=== PATIENT | male | born 1955 | race Caucasian/White ===

== ENCOUNTER 2022-08-21 16:16 | Emergency (ER) | payer MEDICARE, BC, SELFPAY ==
[2022-08-21 16:27] VITALS: BP 112/73; PULSE 65; RESP 18; TEMP 36.7; O2SAT 97; BMI 29.8
--- NOTE | 2022-08-21 16:47 | CRLHL7_ITS ---
For Patients: As a result of the Century Cures Act, medical imaging exams and procedure reports are released immediately into your electronic medical record. You may view this report before your referring provider. If you have questions, please contact your health care provider. INDICATION: Abdominal pain. TECHNIQUE: CT abdomen and pelvis acquired with intravenous contrast, 100 mL of Isovue 370. Coronal and sagittal reformats. COMPARISON: None available. FINDINGS: Right basilar calcified granulomas. Normal liver contour. No suspicious hepatic lesion. Portal veins patent. No biliary dilatation. The gallbladder, pancreas, spleen, and adrenals are unremarkable. Symmetric renal enhancement. No hydronephrosis bilaterally, though the ureters appear diffusely thickened with mild periureteral stranding. The bladder is decompressed but appears diffusely thickened with mucosal hyperenhancement. Unremarkable prostate. The bowel appears normal in caliber and enhancement diffusely. Postsurgical changes of lower abdominal hernia repair. Trace free fluid in the low pelvis. No pneumoperitoneum, focal collection, or lymphadenopathy. Normal caliber abdominal aorta with mild atherosclerotic changes. Lower lumbar spondylosis. IMPRESSION: 1. Urinary bladder is decompressed but appears diffusely thickened with mucosal hyperenhancement, suspicious for cystitis. Correlate with urinalysis. 2. Diffuse ureteral inflammatory changes bilaterally, raising the possibility of ascending urinary infection. No hydronephrosis or definitive CT evidence of pyelonephritis bilaterally. Dictated by Al Marx MD @ 08/21/2022 6:38:38 PM Please note that all CT scans at this facility use dose modulation, iterative reconstruction, and/or weight-based dosing when appropriate to reduce radiation dose to as low as reasonably achievable. Dictated by: Al Marx MD @ 08/21/2022 18:38:48 (Electronically Signed)
[2022-08-21] MEDS: KETOROLAC 30 MG/ML inj IVP (17:05)
[2022-08-21 17:09] LABS: Appearance Urine Cloudy (Clear); Bilirubin Urine Negative (Negative); Blood Urine 2+ (Negative); Color Urine Yellow (Yellow); Glucose Urine Negative (Negative); Ketones Urine 1+ (Negative); Leukocyte Esterase Urine Trace (Negative); Nitrite Urine Positive (Negative); Protein Urine 3+ (Negative); Specific Gravity Urine 1.025 (1.000-1.030); pH Urine 5.5 (5.0-8.5)
[2022-08-21 17:13] LABS: Basophils Absolute Auto 0.03 K/uL (0.00-0.30); Basophils Percent Auto 0.4 % (0.0-3.0); Eosinophils Absolute Auto 0.04 K/uL (0.00-0.50); Eosinophils Percent Auto 0.5 % (0.0-7.0); Hematocrit 39.4 % (37.0-53.0); Hemoglobin* 13.7 gm/dL (13.5-17.5); Immature Granulocytes Abs Auto 0.01 K/uL (0.00-0.30); Immature Granulocytes Pct Auto 0.1 %; Lymphocytes Percent Auto 9.1 % (20-44); Mean Corpuscular HGB Conc 35 gm/dL (32-36); Mean Corpuscular Hemoglobin 35 pg (26-34); Mean Corpuscular Volume 100 fL (80-100); Monocytes Percent Auto 9.1 % (0.0-11.0); Neutrophils Percent Auto 80.8 % (42.0-72.0); Platelet Count* 219 K/uL (140-440); RDW Coefficient of Variation % 11.8 % (11.5-15.5); Red Blood Count 3.96 m/uL (4.30-5.90); White Blood Count* 7.69 K/uL (4.50-11.00)
[2022-08-21 17:17] LABS: Slide Review Reflex No
[2022-08-21 17:38] LABS: Albumin* 4.2 g/dL (3.3-5.0); Chloride* 102 mmol/L (96-114); Sodium* 134 mmol/L (135-149)
[2022-08-21 17:39] LABS: Potassium* 4.3 mmol/L (3.6-5.1)
[2022-08-21 17:41] LABS: Creatinine* 1.3 mg/dL (0.5-1.5); Est. Creatinine Clearance* 62.18; Estimated Glomerular Filt Rate 61 ml/min
[2022-08-21 17:42] LABS: Alanine Aminotransferase* 25 U/L (4-50); Alkaline Phosphatase* 70 U/L (40-150); Aspartate Amino Transferase* 33 U/L (12-35); Bilirubin Direct* 0.2 mg/dL (0.0-0.5); Bilirubin Total* 1.1 mg/dL (0.1-1.5); Blood Urea Nitrogen* 30 mg/dL (7-30); Calcium* 9.5 mg/dL (8.4-10.6); Carbon Dioxide* 22 mmol/L (20-32); Glucose* 97 mg/dL (60-115); Total Protein* 7.9 g/dL (6.0-8.3)
[2022-08-21 17:46] LABS: Bacteria Urine Moderate; Squamous Epithelial Cell Urine Few (None-Few)
--- NOTE | 2022-08-21 18:10 | ED_ITS ---
HPI - Abdominal Pain General Chief Complaint: Abdominal Pain Stated Complaint: Lower back, Lower stomach pain Time Seen by Provider: 08/21/22 16:35 History of Present Illness HPI narrative: This 67-year-old male comes in reporting lower abdominal pain over the past 2 or 3 days. He states that he did not sleep well last night because of the pain. He reports that the pain is constant. He denies having any fevers, dysuria, altered bowel function, nausea, or vomiting. He states that he began to have some pain in his eyes then in his neck and shoulders. These symptoms went away and then eliud began in his abdomen and radiating through to his low back. Related Data Previous Rx's Medication Instructions Recorded cephalexin 500 mg capsule 500 mg PO TID 10 days #30 caps 08/21/22 hydrocodone 5 mg-acetaminophen 325 1 tab PO Q4-6H PRN pain #10 tabs 08/21/22 mg tablet Allergies Allergy/AdvReac Type Severity Reaction Status Date / Time No Known Drug Allergies Allergy Verified 08/21/22 18:09 Review of Systems Status of ROS Reports: 10 or more systems reviewed and unremarkable except as noted in History and below Narrative Constitutional: No fevers, no weight gain or loss. Eyes: No discharge. No vision changes. HENT: No congestion, no sore throat, no ear pain. Cardiovascular: No chest pain, no palpitations. Respiratory: No shortness of breath, no wheezes, no cough. Gastrointestinal: No vomiting, no diarrhea. Lower abdominal pain as described above. Genitourinary: No dysuria, no hematuria. Musculoskeletal: Normal range of motion. Skin: No rashes, no pruritis. Neurological: No dizziness, weakness, sensory change, speech change. Endo/Heme/Allergies: No bruising or bleeding. No polydipsia. Pysch: no suicidality, no anxiety, no insomnia. All other systems reviewed and are negative. PFSH PFSH Social History Smoking Status: Never smoker Do you use any of these nicotine containing products: None Second hand tobacco smoke exposure: No How often do you have a drink containing alcohol: never AUDIT-C Alcohol total score: 0 Non-prescribed substance use: denies use Exam Narrative: Exam Narrative: Constitutional: Well-developed, well-nourished, no acute distress. HEENT: Normocephalic, atraumatic. Neck: Normal range of motion. Nontender. Supple. Heart: Regular. No murmurs. Normal rate. Intact distal pulses. Lungs: Clear to auscultation. No chest discomfort. No wheezes, rhonchi, or rales. Abdomen: Normal bowel sounds. Tenderness in the low abdomen just above the pubic bone. No rebound tenderness. Genitalia: Deferred. Back: No midline tenderness. Normal range of motion. Extremities: Normal range of motion. No injury. Skin: Intact. No rash. Warm. No erythema or pallor. Neurologic: No altered sensation. No weakness. Alert and oriented. Psychiatric: No suicidality. No anxiety or depression. No insomnia. Nursing notes and vitals signs are reviewed. Const: Vital Signs, click to edit/add: Vital Signs - 24 hr 08/21/22 16:27 Temperature 98.0 F Pulse Rate [Pulse Oximeter] 65 Respiratory Rate 18 Blood Pressure [Le ft Upper Arm] 112/73 Pulse Oximetry 97 Oxygen Delivery Me thod Room Air Course Vital Signs Vital signs: Initial Vital Signs Temperature 98.0 F 08/21/22 16:27 Temperature Source Temporal Artery Scan 08/21/22 16:27 Pulse Rate 65 08/21/22 16:27 Pulse Rhythm 08/21/22 16:27 Pulse Strength 3+ Normal 08/21/22 16:27 Respiratory Rate 18 08/21/22 16:27 Blood Pressure 112/73 08/21/22 16:27 Blood Pressure Mean 86 08/21/22 16:27 Blood Pressure Position Sitting 08/21/22 16:27 Pulse Oximetry 97 08/21/22 16:27 Oxygen Delivery Method 08/21/22 16:27 Vital Signs Temperature 98.0 F 08/21/22 16:27 Pulse Rate 65 08/21/22 16:27 Respiratory Rate 18 08/21/22 16:27 Blood Pressure 112/73 08/21/22 16:27 Pulse Oximetry 97 08/21/22 16:27 Oxygen Delivery Method 08/21/22 16:27 Temperature 98.0 F 08/21/22 16:27 Pulse Rate 65 08/21/22 16:27 Respiratory Rate 18 08/21/22 16:27 Blood Pressure 112/73 08/21/22 16:27 Pulse Oximetry 97 08/21/22 16:27 Oxygen Delivery Method 08/21/22 16:27 MDM - Abdominal Pain MDM Narrative Medical decision making narrative: This patient comes in with significant lower abdominal pain that radiates through to his low back. He arrives with normal vital signs. He is normally healthy and yet states that he did not sleep well last night because of the discomfort. An IV was established and labs were drawn. CT scan of the abdomen and pelvis does show evidence of acute cystitis. Urinalysis confirms this with elevated white blood cell count in the urine and positive nitrites. The patient received an IV dose of Rocephin 1 g and prescription for Keflex. He also received a few tablets of [place] for pain relief. He is okay to be discharged home. Lab Data Labs: Lab Results 08/21/22 08/21/22 08/21/22 Range/Units 17:04 17:04 17:04 WBC 7.69 (4.50-11.00) K/uL RBC 3.96 L (4.30-5.90) m/uL Hgb 13.7 (13.5-17.5) gm/dL Hct 39.4 (37.0-53.0) % MCV 100 (80-100) fL MCH 35 H (26-34) pg MCHC 35 (32-36) gm/dL RDW Coeff of Ramirez 11.8 (11.5-15.5) % Plt Count 219 (140-440) K/uL Neut % (Auto) 80.8 H (42.0-72.0) % Lymph % (Auto) 9.1 L (20-44) % Mcdonough % (Auto) 9.1 (0.0-11.0) % Eos % (Auto) 0.5 (0.0-7.0) % Baso % (Auto) 0.4 (0.0-3.0) % Neut # (Auto) 6.20 (1.7-7.0) K/uL Lymph # (Auto) 0.70 L (0.90-2.90) K/uL Mcdonough # (Auto) 0.70 (0.00-0.90) K/UL Eos # (Auto) 0.04 (0.00-0.50) K/uL Baso # (Auto) 0.03 (0.00-0.30) K/uL ESR 70 H (2-15) mm/hr Sodium 134 L (135-149) mmol/L Potassium 4.3 (3.6-5.1) mmol/L Chloride 102 (96-114) mmol/L Carbon Dioxide 22 (20-32) mmol/L BUN 30 (7-30) mg/dL Creatinine 1.3 (0.5-1.5) mg/dL Estimated Creat Clear 62.18 Estimated GFR 61 ml/min Glucose 97 (60-115) mg/dL Calcium 9.5 (8.4-10.6) mg/dL Total Bilirubin 1.1 (0.1-1.5) mg/dL Direct Bilirubin 0.2 (0.0-0.5) mg/dL AST 33 (12-35) U/L ALT 25 (4-50) U/L Alkaline Phosphatase 70 (40-150) U/L C-Reactive Protein 9.0 H (0.5-1.0) mg/dL Total Protein 7.9 (6.0-8.3) g/dL Albumin 4.2 (3.3-5.0) g/dL Urine Color (Yellow) Urine Appearance (Clear) Urine pH (5.0-8.5) Ur Specific [place] (1.000-1.030) Urine Protein (Negative) Urine Glucose (UA) (Negative) Urine Ketones (Negative) Urine Blood (Negative) Urine Nitrite (Negative) Urine Bilirubin (Negative) Urine Urobilinogen (0.2-1.0) Ur Leukocyte Esterase (Negative) Urine RBC (0-2) Urine WBC (0-5) Ur Squamous Epith Cells (None-Few) Urine Bacteria (None) 08/21/22 Range/Units Unknown WBC (4.50-11.00) K/uL RBC (4.30-5.90) m/uL Hgb (13.5-17.5) gm/dL Hct (37.0-53.0) % MCV (80-100) fL MCH (26-34) pg MCHC (32-36) gm/dL RDW Coeff of Ramirez (11.5-15.5) % Plt Count (140-440) K/uL Neut % (Auto) (42.0-72.0) % Lymph % (Auto) (20-44) % Mcdonough % (Auto) (0.0-11.0) % Eos % (Auto) (0.0-7.0) % Baso % (Auto) (0.0-3.0) % Neut # (Auto) (1.7-7.0) K/uL Lymph # (Auto) (0.90-2.90) K/uL [place] # (Auto) (0.00-0.90) K/UL Eos # (Auto) (0.00-0.50) K/uL Baso # (Auto) (0.00-0.30) K/uL ESR (2-15) mm/hr Sodium (135-149) mmol/L Potassium (3.6-5.1) mmol/L Chloride (96-114) mmol/L Carbon Dioxide (20-32) mmol/L BUN (7-30) mg/dL Creatinine (0.5-1.5) mg/dL Estimated Creat Clear Estimated GFR ml/min Glucose (60-115) mg/dL Calcium (8.4-10.6) mg/dL Total Bilirubin (0.1-1.5) mg/dL Direct Bilirubin (0.0-0.5) mg/dL AST (12-35) U/L ALT (4-50) U/L Alkaline Phosphatase (40-150) U/L C-Reactive Protein (0.5-1.0) mg/dL Total Protein (6.0-8.3) g/dL Albumin (3.3-5.0) g/dL Urine Color Yellow (Yellow) Urine Appearance Cloudy A (Clear) Urine pH 5.5 (5.0-8.5) Ur Specific [place] 1.025 (1.000-1.030) Urine Protein 3+ A (Negative) Urine Glucose (UA) Negative (Negative) Urine Ketones 1+ A (Negative) Urine Blood 2+ A (Negative) Urine Nitrite Positive A (Negative) Urine Bilirubin Negative (Negative) Urine Urobilinogen 1.0 (0.2-1.0) Ur Leukocyte Esterase Trace A (Negative) Urine RBC 10-25 A (0-2) Urine WBC 10-25 A (0-5) Ur Squamous Epith Cells Few (None-Few) Urine Bacteria Moderate A (None) Imaging Data CT scan - abdomen: Radiologist's impression: 1. Urinary bladder is decompressed but appears diffusely thickened with mucosal hyperenhancement, suspicious for cystitis. Correlate with urinalysis. 2. Diffuse ureteral inflammatory changes bilaterally, raising the possibility of ascending urinary infection. No hydronephrosis or definitive CT evidence of pyelonephritis bilaterally. Discharge Plan Discharge Clinical Impression: Urinary tract infection Patient Disposition: Home, Self-Care Condition: Stable Additional Instructions: Take medication as prescribed. Follow up with MD or return if worsening symptoms happen. Prescriptions: New cephalexin 500 mg capsule 500 mg PO TID 10 Days Qty: 30 0RF hydrocodone-acetaminophen 5-325 mg tablet 1 tab PO Q4-6H PRN (Reason: pain) Qty: 10 0RF Follow Up/Referrals: Anne Marie Willoughby DO [Primary Care Provider] - Stand Alone Forms: [employer] Info Instructions
[2022-08-21 18:39] LABS: Erythrocyte SedimentationRate* 70 mm/hr (2-15)
[2022-08-21] MEDS: cefTRIAXone 1 GM in 0.9 % SODIUM CHLORIDE Mini-bag 100 ML IVPB (18:52)
== END 2022-08-21 19:34 | disposition home or self-care (01) ==
PROVIDERS: Emergency Provider Emergency Medicine Emergency Medical Services; PCP Family Medicine
DX: N39.0 Urinary tract infection, site not specified (principal)
CPT/HCPCS: 36415; 74177; 80048; 80076; 81001; 85025; 85651; 86140; 87086; 87186; 96365; 96372; 99284; 99285; J0696; J1885; Q9967

== ENCOUNTER 2023-08-31 12:36 | Outpatient (CLI) | payer MEDICARE, BC, SELFPAY ==
--- NOTE | 2023-08-31 13:19 | W.ANESCHARGE ---
Anesthesia Charges Start Date/Time Anesthesia Start Date: 08/31/23 Anesthesia Start Time: 13:25 Stop Date/Time Anesthesia Stop Date: 08/31/23 Anesthesia Stop Time: 13:45
--- NOTE | 2023-08-31 13:48 | W.ANESCHARGE ---
Anesthesia Charges Start Date/Time Anesthesia Start Date: 08/31/23 Anesthesia Start Time: 13:25 Stop Date/Time Anesthesia Stop Date: 08/31/23 Anesthesia Stop Time: 13:45
== END 2023-08-31 12:37 | disposition home or self-care (01) ==
LOC: OP CLINIC 12:38
PROVIDERS: PCP Family Medicine; Visit Provider Internal Medicine Gastroenterology
DX: K22.70 Barrett's esophagus without dysplasia (principal)
CPT/HCPCS: 00731; 43239; 88305; J2704

== ENCOUNTER 2024-04-06 17:20 | Emergency (ER) | payer MEDICARE, BC, SELFPAY ==
[2024-04-06 17:30] VITALS: BP 138/90; PULSE 98; RESP 18; TEMP 37; O2SAT 97; BMI 29.8
--- NOTE | 2024-04-06 17:41 | ED_ITS ---
HPI - General Adult General Chief complaint: Extremity Pain/Injury, Lower Stated complaint: right leg swelling Time Seen by Provider: 04/06/24 17:28 History of Present Illness HPI narrative: right lower leg swelling x one month. denies injury 69-year-old man presenting to the emergency department with concern of right lower leg swelling for last month. Apparently no injury. Denies trauma. Not really pain but just a tightness. No chest pain or shortness of breath. Just got back from hunting most in [place]; son got a moves but he did not. He is pleased by this result. There was no injury here either. He has continued to be very active and ambulate on his leg since this development. No history of heart failure. Though much later in conversation does reveal about a month ago was just ambulating and felt a sudden tightening in his lower right calf. He actually has been limping a little since this time Related Data Home Medications ?Medication ?Instructions ?Recorded ?Confirmed levothyroxine 175 mcg tablet 175 mcg PO QAM 04/06/24 04/06/24 lisinopril 5 mg tablet 5 mg PO DAILY 04/06/24 04/06/24 metoprolol succinate 100 mg 100 mg PO DAILY 04/06/24 04/06/24 tablet,extended release 24 hr pantoprazole 40 mg tablet,delayed 40 mg PO DAILY 04/06/24 04/06/24 release probenecid 500 mg tablet 500 mg PO BID 04/06/24 04/06/24 rivaroxaban 20 mg tablet (Xarelto) 20 mg PO DAILY 04/06/24 04/06/24 tamsulosin 0.4 mg capsule 0.4 mg PO DAILY 04/06/24 04/06/24 tolterodine 4 mg capsule,extended 4 mg PO DAILY 04/06/24 04/06/24 release 24 hr Previous Rx's ?Medication ?Instructions ?Recorded cephalexin 500 mg capsule 500 mg PO TID 10 days #30 caps 08/21/22 hydrocodone 5 mg-acetaminophen 325 1 tab PO Q4-6H PRN pain #10 tabs 08/21/22 mg tablet Allergies Allergy/AdvReac Type Severity Reaction Status Date / Time No Known Drug Allergies Allergy Verified 08/21/22 18:09 Review of Systems Status of ROS: Reports: 6 or more systems reviewed and unremarkable except as noted in History and below PFSH PFSH Social History Smoking Status: Never smoker Do you use any of these nicotine containing products: None Second hand tobacco smoke exposure: No How often do you have a drink containing alcohol: never AUDIT-C Alcohol total score: 0 Non-prescribed substance use: denies use Exam Narrative: Exam Narrative: Very pleasant. He bearded. Breathing easily. Lungs appear to be clear. Heart in mildly elevated rate. Right lower leg in question shows moderate pitting edema from the knee down essentially. No pain. No defect in the Achilles appreciated. He has good strength to plantar flexion dorsiflexion. No abnormality really in the knee. Equal and strong femoral pulses. No swellings here. Const: Vital Signs, click to edit/add: Vital Signs - 24 hr 04/06/24 17:30 Temperature 98.6 F Pulse Rate [Right Pulse Oximeter] 98 Respiratory Rate 18 Blood Pressure [Ri ght Upper Arm] 138/90 H Pulse Oximetry 97 Oxygen Delivery Me thod Room Air Documenting provider has reviewed patient's vital signs: yes Course Vital Signs Vital signs: Initial Vital Signs Temperature 98.6 F 04/06/24 17:30 Temperature Source Temporal Artery Scan 04/06/24 17:30 Pulse Rate 98 04/06/24 17:30 Respiratory Rate 18 04/06/24 17:30 Blood Pressure 138/90 H 04/06/24 17:30 Blood Pressure Mean 106 H 04/06/24 17:30 Blood Pressure Position Sitting 04/06/24 17:30 Pulse Oximetry 97 04/06/24 17:30 Oxygen Delivery Method Room Air 04/06/24 17:30 Vital Signs Temperature 98.6 F 04/06/24 17:30 Pulse Rate 98 04/06/24 17:30 Respiratory Rate 18 04/06/24 17:30 Blood Pressure 138/90 H 04/06/24 17:30 Pulse Oximetry 97 04/06/24 17:30 Oxygen Delivery Method Room Air 04/06/24 17:30 Temperature 98.6 F 04/06/24 20:01 Pulse Rate 85 04/06/24 20:01 Respiratory Rate 18 04/06/24 20:01 Blood Pressure 125/78 04/06/24 20:01 Pulse Oximetry 97 04/06/24 20:01 Oxygen Delivery Method Room Air 04/06/24 20:01 Medical Decision Making MDM Narrative Medical decision making narrative: Without evidence of injury or rather known injury I would assess for DVT. Does not have any evidence of cellulitis or other injury on the surface. Unusual to be having this degree of edema isolated on 1 lower extremity. Certainly could be venous insufficiency I suppose. Will check 1st for DVT per concern. Reviewed scan with market development analyst noting this to be negative. No evidence of [place] cyst either. Radiology over-read as below TECHNIQUE: Static and compression grayscale and spectral (including color) Doppler ultrasound of the right lower extremity. FINDINGS: Deep veins: The right common femoral, deep femoral, superficial femoral, popliteal, posterior tibial, and contralateral left common femoral veins are patent and free of clot. The peroneal veins are not seen. Superficial veins: The imaged right great saphenous vein is patent and free of clot. Extravascular findings: No significant incidental findings. IMPRESSION: No evidence of DVT in the right lower extremity. The peroneal veins are not seen. Again asymmetry seems unusual. Pressors some sort of occult malignancy over bony processes contributing to the edema. Would also assess labs particularly renal function though I think this will be fine. X-rays of the right tib fib reviewed by me look to be WNL. Chronic changes as noted per Radiology below. Technique: Right tibia and fibula 2 views. Comparison: None. Findings: Bones: Alignment is normal. No fractures or suspicious bone lesions. Joint spaces: Knee joint chondrocalcinosis. Soft tissues: Diffuse soft tissue swelling. Vascular calcifications. Impression: No acute fracture or dislocation. Diffuse soft tissue swelling. Reviewed again history and finally revealed this episode of tightening as noted in 2nd part of HPI. I do think this might explain his symptoms. A calf strain or tear to some degree in somebody who already is rather pain tolerant and then continued heavy activity. Labs are reassuring. See patient discharge plan for further discussion Medical Records Medical records reviewed: Yes I reviewed the patient's medical records Lab Data Lab results reviewed: Yes I reviewed the patient's lab results Labs: Lab Results 04/06/24 04/06/24 Range/Units 19:07 19:11 Sodium 138 (135-149) mmol/L Potassium 4.2 (3.6-5.1) mmol/L Chloride 105 (96-114) mmol/L Carbon Dioxide 23 (20-32) mmol/L Anion Gap 10 (7-15) mEq/L BUN 34 H (7-30) mg/dL Creatinine 1.2 (0.5-1.5) mg/dL Estimated Creat Clear 65.56 Estimated GFR 66 ml/min Glucose 84 (60-115) mg/dL Calcium 9.4 (8.4-10.6) mg/dL Total Creatine Kinase 145 (54-186) U/L Urine Color Yellow (Yellow) Urine Appearance Clear (Clear) Urine pH 6.0 (5.0-8.5) Ur Specific [place] 1.025 (1.000-1.030) Urine Protein Negative (Negative) Urine Glucose (UA) Negative (Negative) Urine Ketones Negative (Negative) Urine Blood Negative (Negative) Urine Nitrite Negative (Negative) Urine Bilirubin Negative (Negative) Urine Urobilinogen 0.2 (0.2-1.0) Ur Leukocyte Esterase Negative (Negative) Urine RBC 0-2 (0-2) Urine WBC 0-2 (0-5) Ur Squamous Epith Cells None (None-Few) Urine Bacteria None (None) Discharge Plan Discharge Clinical Impression: Leg edema, right, Strain of calf muscle Patient Disposition: Home, Self-Care Condition: Stable Additional Instructions: I am still in having a hard time understanding that what sounds like a strain of your calf muscle a month ago is still contributing to swelling at this point though I suppose it is possible. Have not been able to identify anything else. Less likely to be a clot as you are anticoagulated. We have not identified anything else unusual in the knee to contribute to this either. See handout on exercises for calf strain. I would wrap your leg as discussed with [place] wraps provided or perhaps get a long compression sock to put on to your leg at rest. I suppose the sock would be nice when you are up and about. Elevate your leg at rest otherwise. Recent labs from your clinic seem to show some mild inefficiency in your kidney. I will call you if there is anything else to discuss in your lab work today. (all your labs today ended up looking quite good; resulted just now ) Otherwise if swelling and discomfort is persisting in other 2 weeks, in spite of treatment/exercises, I would follow-up with Orthopedics and/or your primary care provider. You might need further imaging of this leg on follow-up for a more certain diagnosis. Prescriptions: No Action cephalexin 500 mg capsule 500 mg PO TID 10 Days Qty: 30 0RF hydrocodone-acetaminophen 5-325 mg tablet 1 tab PO Q4-6H PRN (Reason: pain) Qty: 10 0RF levothyroxine 175 mcg tablet 175 mcg PO QAM tolterodine 4 mg capsule,extended release 24hr 4 mg PO DAILY metoprolol succinate 100 mg tablet extended release 24 hr 100 mg PO DAILY tamsulosin 0.4 mg capsule 0.4 mg PO DAILY pantoprazole 40 mg tablet,delayed release (DR/EC) 40 mg PO DAILY lisinopril 5 mg tablet 5 mg PO DAILY probenecid 500 mg tablet 500 mg PO BID Xarelto 20 mg tablet 20 mg PO DAILY Follow Up/Referrals: Anne Marie Willoughby DO [Primary Care Provider] - Stand Alone Forms: [facility] Info Instructions
--- NOTE | 2024-04-06 17:46 | CRLHL7_ITS ---
For Patients: As a result of the Century Cures Act, medical imaging exams and procedure reports are released immediately into your electronic medical record. You may view this report before your referring provider. If you have questions, please contact your health care provider. INDICATION: Right leg swelling, not otherwise specified. COMPARISON: None available. TECHNIQUE: Static and compression grayscale and spectral (including color) Doppler ultrasound of the right lower extremity. FINDINGS: Deep veins: The right common femoral, deep femoral, superficial femoral, popliteal, posterior tibial, and contralateral left common femoral veins are patent and free of clot. The peroneal veins are not seen. Superficial veins: The imaged right great saphenous vein is patent and free of clot. Extravascular findings: No significant incidental findings. IMPRESSION: No evidence of DVT in the right lower extremity. The peroneal veins are not seen. Dictated by Samm Felton MD @ 04/06/2024 6:57:24 PM (Electronically Signed)
--- OUTSIDE RECORDS SUMMARY | 2024-04-06 18:36 | XMS_ITS | Clinical Summary ---
Author Organization [facility] Address [place], [place] [address] Care Team Providers Care Group President Name Role Phone Anne Marie Willoughby DO Primary Care Provider Jayy Bird DPM Unavailable Allergies No known active allergies Medications Medication Sig Dispensed Refills Start Date End Date Status Abvdadog-Xlfhwei-Rlz n-Lutein tab Take 1 tablet by mouth 2 times daily. 0 06/09/2014 Active [place] [id number] rol 500 mg-500 mcg -1 mg-12.5 mg cap Take 3 tablets by mouth once daily. 0 06/09/2014 Active polyethylene glycol-electrolyte (GOLYTELY) 236-22.74-6.74 -5.86 gram suspensionIndication s:Encounter for screening colonoscopy Drink 3 quarts the day before procedure and drink 1 quart 6 hours before procedure 4000 mL 05/22/2021 Active tolterodine (DETROL LA) 4 mg Extended-Release capsuleIndications:U rinary urgency Take 1 Capsule (4 mg) by mouth once daily. 90 Capsule 3 10/08/2021 Active erythromycin ophthalmic ointment 0.5%Indications:Infe cted eye lid Apply 1 Strip to right eye 6 times daily. 3.5 g 01/08/2022 Active triamcinolone 0.5% (ARISTOCORT) 0.5 % creamIndications:Acu te eczema Apply topically to affected area(s) two times daily. 30 g 1 04/13/2023 Active metoprolol succinate (TOPROL XL) 100 mg Sustained-Release tabletIndications:Pe rsistent atrial fibrillation (HC) Take 1 Tablet (100 mg) by mouth once daily. 90 Tablet 3 06/18/2023 Active cephalexin (KEFLEX) 500 mg capsule Take 1 Capsule by mouth three times daily. Active HYDROcodone-acetamin ophen (5-325 mg/tablet) Take 1 Tablet by mouth every 4 hours if needed for Pain. Active levothyroxine (SYNTHROID) 175 mcg tabletIndications:Hy pothyroidism (acquired) Take 1 Tablet (175 mcg) by mouth before breakfast. 90 Tablet 3 02/08/2024 Active lisinopriL (PRINIVIL; ZESTRIL) 5 mg tabletIndications:Pe rsistent atrial fibrillation (HC) Take 1 Tablet (5 mg) by mouth once daily. 90 Tablet 4 02/08/2024 Active pantoprazole (PROTONIX) 40 mg delayed-release tabletIndications:Ba rrett's esophagus without dysplasia Take 1 Tablet (40 mg) by mouth once daily. 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 180 Tablet 3 02/08/2024 Active rivaroxaban (Xarelto) 20 mg tabletIndications:Pe rsistent atrial fibrillation (HC) TAKE ONE TABLET BY MOUTH EVERY DAY 90 Tablet 3 02/08/2024 Active sildenafil citrate (VIAGRA) 100 mg tabletIndications:Er ectile dysfunction due to diseases classified elsewhere Take 0.5-1 Tablets (50-100 mg) by mouth once daily if needed for Erectile Dysfunction. Take 30min to 4 hours before sexual activity. Max 100mg/24hr.MAX 1 TABLET PER 24 HOURS. 10 Tablet 2 02/08/2024 Active tamsulosin (FLOMAX) 0.4 mg capsuleIndications:U rinary frequency TAKE ONE CAPSULE BY MOUTH EVERY DAY 90 Capsule 3 02/08/2024 Active Active Problems Problem Noted Date Diagnosed Date Ringing in ear, left 08/07/2023 Gouty arthritis of hand 12/16/2021 Persistent atrial fibrillation 08/18/2020 Assessment & Plan (07/27/2022 3:39 PM [employer]): chart update only. Left hydrocele 11/17/2018 Osteoarthritis of both hands 07/18/2018 Hypothyroidism (acquired) 01/14/2018 Sialadenitis 01/14/2018 Espino's esophagus without dysplasia 06/24/2016 Overview (09/02/2023): EGD 06/2016 Espino's, repeat EGD in 1 year EGD 07/2017 Espino's, repeat EGD in 3 years EGD 08/2020 Espino's, repeat EGD in 3 years with propofol EGD 08/2023 Espino's, repeat EGD in 3 years, propofol Adenomatous colon polyp 06/24/2016 Overview (06/19/2021): Colonoscopy 06/2016 polyp repeat in 5 years Colonoscopy 06/2021 TA, repeat in 5 years, propofol Macular degeneration, dry 06/09/2014 Overview (06/11/2014): Dr. Muniz HTN (hypertension) 10/10/2013 Shoulder impingement syndrome 09/14/2013 buttermaker continuous churn (current) use of anticoagulants 2011 Left atrial thrombus Resolved Problems Problem Noted Date Diagnosed Date Resolved Date Gout 01/30/2015 04/14/2023 Adjustment disorder with mix ed anxiety and depressed mood 07/14/2014 03/31/2019 A-fib 02/23/2012 03/12/2012 Sports hernia, bilateral 07/29/2010 Elevated BP 09/13/2008 03/31/2019 Mallet finger 09/13/2008 03/31/2019 Chronic Systolic/Diastolic C ongestive Heart Failure, NYHA Class II 09/23/2022 Atrial fibrillation 04/07/20 Overview (10/10/2013): -newly found 2011 - presented with tachycardia-mediated CMP/CHF symptoms -KIMBER 03/11/2012 large ROLF thrombus present -KIMBER 05/19/2012, 09/02/2012, and 01/19/2013 KIMBER with residual thrombus (although improving) -05/30/2013 KIMBER guided DCCV scheduled. -06/07/2013 CTA for pulmonary vein anatomy and evaluation of left atrial appendage. Previously seen structure in question appears to be most consistent with pectinate muscle based on orphologic appearance and Hounsfield unit density. -06/22/2013: s/p acutely successful direct current cardioversion -10/10/2013 admission for dofetilide therapy Non-ischemic Dilated Cardiomyopathy 09/23/2022 Overview (05/30/2013): -newly diagnosed 03/2012 - LVEF significantly reduced *coronary angiogram without significant stenosis *tachycardia mediated with new afib RVR -Echo 01/19/2013 LVEF 40% Encounters Date Type Department Care Team Description 04/06/2024 Telephone [facility] [address] [place] [address] Anne Marie Willoughby DO Results 04/06/2024 Nurse Triage [address] [address] Anne Marie Willoughby DO Leg Swelling 03/15/2024 Nurse Triage [facility] [address] [place] [address] Anne Marie Willoughby DO Leg Pain/problem 02/08/2024 3:55 PM CDT Office Visit [facility] [address] [place] [address] Anne Marie Willoughby DO Medicare ANNUAL (subsequent) Visit (68 yr); Foot Problem (right foot-corn) 02/08/2024 Travel 01/26/2024 Orders Only [facility] [address] [place] [phone] Calixto Hernandez MD <No scans attached> 01/12/2024 Refill [facility] [address] [place] [address] Anne Marie iWlloughby DO Refill Request (Tamsulosin) from Last 3 Months Immunizations Name Administration Dates Next Due COVID-19 vaccine (Tapingo NTetechies.in 30mcg/0.3mL) SUZE MASON 07/15/2021,11/22/2020,10/03/2020 Influenza, IIV4 07/15/2021,,03/30/2019,2017,07/17/2017,04/30/2016,03/15/2014 Influenza, Inactivated AIIV4 (Age 65+ Years) Preserv Free 04/13/2023,06/16/2022 Pneumococcal Conj 20-valent (Prevnar 20) 06/16/2022 Pneumococcal Poly,23-Valent (Pneumovax) 03/12/2012 Tdap 02/23/2012 Zoster (Shingrix-RZV, recombinant) 03/29/2018, Family History Medical History Relation Name Comments No Known Problems Brother 1 No Known Problems Brother 2 No Known Problems Brother 3 No Known Problems Brother 4 Cancer-prostate Father Psychiatric illness Father Stroke Maternal Grandfather Coronary artery disease Mother Heart Disease Mother bypass Hypertension Mother Heart attack Paternal Grandfather No Known Problems Sister 1 No Known Problems Sister 2 No Known Problems Sister 3 Relation Name Status Comments Brother 1 Alive Brother 2 Alive Brother 3 Alive Brother 4 Alive Father Alive Maternal Grandfather Maternal Grandmother Mother (Age 81) Paternal Grandfather Paternal Grandmother Sister 1 Alive Sister 2 Alive Sister 3 Alive Social History Tobacco Use Types Packs/Day Years Used Date Smoking Tobacco: Never Smokeless Tobacco: Former Chew Quit: 05/20/2014 Tobacco Cessation:Counseling Given: Yes Comments:37 years of chew Alcohol Use Standard Drinks/Week Comments Yes 12 (1 standard drink = 0.6 oz pure alcohol) about 12-24 beers per week, couple per night maybe PHQ-2 Answer Date Recorded PHQ-2 TOTAL SCORE 1 02/08/2024 Social Connections Answer Date Recorded Frequency of Communication with Friends and Fami ly Not on file 06/27/2021 Financial Resource Strain Answer Date R ecorded Difficulty of Paying Living Expenses Not on file 06/27/2021 Difficulty of Paying Living Expenses Not on file 06/27/2021 Sex and Gender Information Value Date Recorded Sex Assigned at Not on file Gender Identity Not on file Sexual Orientation Not on file Obstetrics History Last Filed Vital Signs Vital Sign Reading Time Taken Comments Blood Pressure 114/76 02/08/2024 4:08 PM CDT Pulse 84 02/08/2024 4:08 PM CDT Temperature 37.1 ??C (98.7 ??F) 06/12/2021 4:15 PM CS T Respiratory Rate 16 2021 3:04 PM CDT Oxygen Saturation 99% 02/08/2024 4:08 PM CDT Inhaled Oxygen Concentration - - Weight 105.2 kg (232 lb) 02/08/2024 4:08 PM CDT Height 182.2 cm (5' 11.75) 02/08/2024 4:08 PM C DT Body Mass Index 31.68 02/08/2024 4:08 PM CDT Plan of Treatment Upcoming Encounters Date Type Department Care Team (Late st Contact Info) Description 06/23/2024 11:00 AM [employer] Orders Only [facility] [address] [facility] [address] [facility] [address] [place] [address] 06/23/2024 1:00 PM [employer] Office Visit [facility] [address] [place] [address] Albina May PA [address] [place], [place] [id number] Health Maintenance Due Date Last Done Comments Tetanus booster 02/22/2022 02/23/2012 COVID-19 vaccine series ( season) 2024 07/15/2021, 11/22/2020, 10/03/2020 Influenza for age 65+ 03/06/2024 04/13/2023 , 06/16/2022, 07/15/2021, Additional history exists BMI (ht and wt on same day) for age 18+ 02/07/2025 02/08/2024, 06/18/2023, 06/16/2022, Additional history exists Depression screening for age 12+ 02/07/2025 02/08/2024, 06/16/2022, 06/16/2022, Additional history exists Medicare Wellness for age 65+ 02/08/2025 02/08/2024, 06/16/2022 Colonoscopy through age 75 06/17/202606/17, 06/17/2021, 06/23/2016, Additional history exists Lipids for age 45-75 02/07/2029 02/08/2024, 05/13/2023, 06/16/2022, Additional history exists Tdap Completed 02/23/2012 Hepatitis C screening for ag e 18-79 Completed 12/30/2013 Zoster (shingles) series for age 50+ Completed 03/29/2018, 10/13/2017 Pneumococcal series for age 65+ Completed 2, 03/12/2012 Procedures Procedure Name Priority Date/Time Associated Diagnosis Comments TSH Routine 02/08/2024 5:03 PM CDT Hypothyroidism (acquired) PSA TOTAL (DIAGNOSTIC) Routine 02/08/2024 5:03 PM CDT Elevated prostate specific antigen (PSA) BASIC METABOLIC PANEL Routine 02/08/2024 5:03 PM CDT HTN (hypertension) LIPID PANEL W REFLEX MEASURED LDL Routine 02/08/2024 5:03 PM CDT Lipid screening COLONOSCOPY SCREENING Routine 06/17/2021 8:06 AM [employer] History of colon polyps ANTI HCV Routine 12/30/2013 3:22 PM CDT Need for hepatitis C screening test from Last 3 Months or Most Recently Relevant to Health Maintenance Results * (ABNORMAL) LIPID PANEL W REFLEX MEASURED LDL (02/08/2024 5:03 PM CDT) CHOLESTEROL,TOTAL 201(H) 100 - 199 mg/dL 02/09/2024 3:15 PM CDT [facility] [employer] Comment: Cholesterol, Total Reference Ranges Desirable <200 mg/dL Borderline 200-239 mg/dL High >=240 mg/dL TRIGLYCERIDES 110 <150 mg/dL 02/09/2024 3:15 PM CDT [facility] [employer] LAB[facility] HDL CHOLESTEROL 53 >40 mg/dL 4 3:15 PM CDT [facility] [employer] NON-HDL CHOLESTEROL 148(H) <145 mg/dl 02/09/2024 3:15 PM CDT [facility] [employer] CHOL/HDL RATIO 3.79 <4.50 02/09/2024 3:15 PM CDT [facility] [employer] LDL CHOLESTEROL 126 <=130 mg/dL 02/09/2024 3:15 PM CDT [facility] VLDL CHOLESTEROL 22 <=30 mg/dL 02/09/2024 3:15 PM CDT [facility] PROVIDER ORDERED STATUS RANDOM 02/09/2024 3:15 PM CDT [facility] Blood BLOOD SPECIMEN / Unknown Venipuncture / Unknown 02/08/2024 5:03 PM CDT 02/08/2024 5:03 PM CDT Anne Marie Natarajan Case DO CHEMISTRY Performing Organization Address City/[facility]/ZIP Co de Phone Number [facility] [address] [place] [address], * TSH (02/08/2024 5:03 PM CDT) TSH 0.79 0.27 - 4.20 uIU/mL 02/09/2024 3:15 PM CDT [facility] Blood BLOOD SPECIMEN / Unknown Venipuncture / Unknown 02/08/2024 5:03 PM CDT 02/08/2024 5:03 PM CDT Narrative [facility] - 02/09/2024 3:15 PM CDT In Adults, TSH values between 5.00 and 10.00 uIU/ml do not necessarily indicate the presence of Hypothyroidism. Correlation with clinical findings such as presence of goiter and/or Thyroperoxidase (TPO) Antibody may be helpful. For more information please refer to OMAYRA 2004; 291: 228-238. Anne Marie Willoughby DO CHEMISTRY [facility] [address] [place] [address], * PSA TOTAL (DIAGNOSTIC) (02/08/2024 5:03 PM CDT) PSA TOTAL (DIAGNOSTIC) 1.72 <4.00 ng/mL 02/09/2024 3:15 PM CDT [facility] Blood BLOOD SPECIMEN / Unknown Venipuncture / Unknown 02/08/2024 5:03 PM CDT 02/08/2024 5:03 PM CDT Narrative [facility] - 02/09/2024 3:15 PM CDT The test method changed on 12/30/2022. If this test has been used for serial monitoring, rebaselining is recommended. Rebaselining consists of 2 measurements, collected 3-6 weeks apart. The [employer] total PSA assay is an electrochemiluminescence immunoassay ECLIA performed on the [employer] Chris e immunoassay analyzers. Values obtained with different assay methods may be different and cannot be used interchangeably. Anne Marie Willoughby DO CHEMISTRY [facility] [address] [place] [address], * (ABNORMAL) BASIC METABOLIC PANEL (02/08/2024 5:03 PM CDT) SODIUM 140 136 - 145 mmol/L 02/09/2024 3:15 PM CDT [facility] POTASSIUM 5.1 3.5 - 5.1 mmol/L 02/09/2024 3:15 PM CDT [facility] CHLORIDE 104 98 - 107 mmol/L 02/09/2024 3:15 PM CDT [facility] CO2,TOTAL 24 22 - 29 mmol/L 02/09/2024 3:15 PM CDT [facility] ANION GAP 12 5 - 18 02/09/2024 3:15 PM CDT [facility] GLUCOSE 93 70 - 99 mg/dL 02/09/2024 3:15 PM CDT [facility] CALCIUM 9.6 8.8 - 10.2 mg/dL 02/09/2024 3:15 PM CDT [facility] BUN 15 8 - 23 mg/dL 02/09/2024 3:15 PM CDT [facility] CREATININE 1.31(H) 0.70 - 1.20 mg/dL 02/09/2024 3:15 PM CDT [facility] BUN/CREAT RATIO 11 10 - 20 4 3:15 PM CDT [facility] eGFR 60(L) >90 mL/min/1.7 3m2 02/09/2024 3:15 PM CDT [facility] Comment:As of 2021, eG FR is calculated by the CKD-EPI creatinine equation without race adjustment. ??eGFR can be influenced by muscle mass, exercise, and diet. ??The reported eGFR is an estimation only and is only applicable if the renal function is stable. Blood BLOOD SPECIMEN / Unknown Venipuncture / Unknown 02/08/2024 5:03 PM CDT 02/08/2024 5:03 PM CDT Anne Marie Willoughby DO CHEMISTRY Performing Organization Address [facility] Co de Phone Number [facility] [address] [place] [address], * COLONOSCOPY SCREENING (06/23/2016 12:00 AM [employer]) Naldo Asencio MD GI PROCEDURE ORD * ANTI HCV [69951.2] (12/30/2013 3:22 PM CDT) HEPATITIS C ANTIBODY Non-Reacti ve Non-Reacti ve 12/30/2013 8:47 PM CDT [facility] Blood specimen (specimen) BLOOD SPECIMEN / Unknown Venipuncture / Unknown 12/30/2013 3:22 PM CDT 12/30/2013 3:22 PM CDT Narrative [facility] - 12/30/2013 8:47 PM CDT Antibodies to HCV not detected; does not exclude the possibility of exposure to HCV. Anne Marie Willoughby DO SEND OUTS Performing Organization Address City/[facility]/ZIP Co de Phone Number [facility] [address] [place] [address], from Last 3 Months or Most Recently Relevant to Health Maintenance Advance Directives Documents on File Type Date Recorded Patient Application Development Director Expl anation Healthcare Directive 04/25/2016 7:23 AM 1 * Full Code (Latest Code Status on File) Date Activated Date Inactivated Comments 10/10/2013 12:23 PM 10/13/2013 3:12 PM * Full Code Date Activated Date Inactivated Comments 06/22/2013 8:13 AM 06/22/2013 3:02 PM * Full Code Date Activated Date Inactivated Comments 05/30/2013 10:57 AM 05/30/2013 4:03 PM * Full Code Date Activated Date Inactivated Comments 01/19/2013 10:23 AM 01/19/2013 6:23 PM * Full Code Date Activated Date Inactivated Comments 03/10/2012 3:35 PM 03/12/2012 6:30 PM Care Teams Group President Relationship Specialty Start Date End Date Anne Marie Willoughby DO [address] [address] PCP - General Family Practice 07/17/10 Jayy Bird DPM [address] [place] [address] PODIATRY Podiatry 06/09/12
--- OUTSIDE RECORDS SUMMARY | 2024-04-06 18:36 | XMS_ITS | Clinical Summary ---
Author Organization [facility] Address [address] [address] Care Team Providers Care Housekeeper And Laundry Assistant Name Role Phone Pcp, Pt Mary MCCORMICK Primary Care Provider [phone] Source Comments You are receiving this document as you are listed as the primary care provider,follow-up provider, or the patient has been referred to you for consultation.This is in compliance with the Medicare and[employer] EHR Incentive Program,which states Providers who transition their patient to another setting of careor provider of care or refers their patient to another provider of care shouldprovide summary care record for each transition of care or referral. [place] Allergies No known active allergies Medications Medication Sig Dispensed Refills Start Date End Date Status lisinopril (AKA ZESTRIL) 10 MG tablet Take 5 mg by mouth Daily. 06/18/2015 Active rivaroxaban (AKA XARELTO) 10 MG tablet Take 20 mg by mouth Daily. 06/18/2015 Active diltiaZEM ER beads (TIAZAC) 240 MG 24 hour release capsule Take 240 mg by mouth daily. Active esomeprazole (NEXIUM) 40 MG capsule Take 40 mg by mouth daily. Active eszopiclone (LUNESTA) 1 MG tablet Take by mouth daily at bedtime. Active predniSONE (DELTASONE) 20 MG tabletIndications:G out flare ups Take 20 mg by mouth as needed. Indications: Gout flare ups Active sildenafil (VIAGRA) 100 MG tablet Take 100 mg by mouth daily. Active ciclopirox olamine (LOPROX) 0.77 % cream Apply topically two times a day. Active acetaminophen (TYLENOL) 500 MG tablet Take 1 Tab by mouth every 4 hours as needed for Pain (Mild Pain). Maximum acetaminophen dose is 4000 mg in 24 hours 100 Tab 11 01/08/2018 Active ibuprofen (MOTRIN) 200 MG tablet Take 2 Tabs by mouth every 6 hours as needed for Pain (Mild Pain). This may be safely mixed with the prescription pain medications (oxycodone, hydrocodone or tramadol.)?? This may also be safely mixed with acetaminophen. 100 Tab 01/08/2018 Active traMADol (ULTRAM) 50 MG tablet Take 1 Tab by mouth every 4 hours as needed for Pain (Severe Pain). This medication may be safely taken with ibuprofen or naproxen 6 Tab 01/08/2018 Active Additional Information Patient not taking.Reported on 01/18/2018 colchicine (COLCRYS) 0.6 MG tablet Take 1 Tab by mouth two times a day. 14 Tab 01/18/2018 Active Active Problems No known active problems Social History Tobacco Use Types Packs/Day Years Used Date Smoking Tobacco: Never Smokeless Tobacco: Never Alcohol Use Standard Drinks/Week Comments Yes 12 (1 standard drink = 0.6 oz pu re alcohol) Sex and Gender Information Value Date Recorded Sex Assigned at Not on file Gender Identity Not on file Sexual Orientation Not on file Last Filed Vital Signs Vital Sign Reading Time Taken Comments Blood Pressure 140/89 01/08/2018 1:04 PM CDT Pulse 85 01/08/2018 1:04 PM CDT Temperature 36.3 ??C (97.4 ??F) 01/08/2018 1:04 PM CD T Respiratory Rate 16 01/08/2018 1:04 PM CDT Oxygen Saturation 98% 01/08/2018 1:04 PM CDT Inhaled Oxygen Concentration - - Weight 94.8 kg (209 lb) 01/08/2018 10:45 AM CDT Height 182.9 cm (6' 0.01) 01/08/2018 10:45 AM C DT Body Mass Index 28.34 01/08/2018 10:45 AM CDT Plan of Treatment Health Maintenance Due Date Last Done Comments Colon Cancer Screening Plan Due 1955 Hep C Screening (Preventive Services) 1955 PSA Screening Discussion 1955 Adult Preventive Visit 1975 Cholesterol 1992 DTaP/Tdap/Td (2 - Tdap) 02/22/2022 02/23/2012 Pneumococcal 65+ Yrs (2 - PCV) 2022 03/12/2012 COVID-19 Vaccine (3 - season) 2024 11/22/2020, 10/03/2020 Influenza (#1) 2024 04/06/2020, 03/07, 04/05/2018, Additional history exists RSV (1 - 1-dose 75+ series) 2032 Zoster/Shingles Completed 03/29/2018, 10/13/2017 HepA Aged Out No longer eligi ble based on patient's age to complete this topic HepB Aged Out No longer eligi ble based on patient's age to complete this topic Hib Aged Out No longer eligi ble based on patient's age to complete this topic IPV (Polio) Aged Out No longer eligi ble based on patient's age to complete this topic MCV4 Aged Out No longer eligi ble based on patient's age to complete this topic Care Teams Housekeeper And Laundry Assistant Relationship Specialty Start Date End Date Pcp, Pt MD [place] [address] PCP - General 06/18/15
--- OUTSIDE RECORDS SUMMARY | 2024-04-06 18:36 | XMS_ITS | Data Portability ---
Author Organization [facility], [facility] Address [address] [place] [address] Assessment No assessment recorded. Plan of Treatment Reminders Order Date Submit Date Provider Last Modified By Organization Details Last Modified Time Details Appointments None recorded. Lab PSA, total, serum or plasma 2022 023 [email or web address] 30 [facility], [address], [place], [address], 3 09:08:47 PSA, serum or plasma 2022 023 [facility], [address], [place], [address], 3 16:46:46 PSA, serum or plasma 2023 024 [facility], [address], [place], [address], 4 15:50:39 PSA, total, serum or plasma 2023 024 [email or web address], [address] , [place], [address], 4 16:35:47 Referral None recorded. Procedures None recorded. Surgeries None recorded. Imaging None recorded. Medication Orders tamsulosin 0.4 mg capsule 2022 023 [facility], [place], operated by [facility], [place], [place], [address] [facility], [place], [address], 3 17:06:18 tolterodine ER 4 mg capsule,ext ended release 24 hr 2022 023 [facility], [place], [address] [facility], [place], [address], 3 17:06:19 Patient TargetsNo targets recorded. Patient InstructionsNo instructions recorded. Reason for Referral None Reported. Results Created Date Observation Date Name Description Value Unit Range Abnormal Flag Note LastModifiedBy Organization Detail LastModifiedTime 08/18/19 23 08/18/2022 PSA, serum or plasm a PSA 10.6 ng/mL 0-4.0 Not Available [facility] [address], [place], [address], 08/18/2022 16:46:33 09/02/19 24 09/02/2023 PSA, serum or plasm a PSA 1.5 ng/mL 0-4.0 Not Available [facility] [address], [place], [address], 09/02/2023 15:50:20 08/19/19 23 08/18/2022 bladd er scan (PROC ) No observ ation record ed. BARCODE Not Available 2022 09:44:28 Result Notes None recorded. Procedures Surgical History Date Name Laterality Status Provider Name and Address Organization Details Recorded Time 4 YAM CURER/blood draw completed Tony Anderson MD [address] [place] [address],[address], [address], [facility] 09/02/2023 15:50:15 4 Bladder Scan completed Tony Anderson MD [address] [place] [address],[address], [address], [facility] 09/02/2023 15:50:10 3 YAM CURER/blood draw completed Tony Anderson MD [address] [place] [address],[address], [address], [facility] 08/18/2022 16:46:28 02/13/202 3 Bladder Scan completed Tony Anderson MD [address] [facility],[address], [place], [address], [facility] 08/18/2022 16:46:22 Appendectomy completed Tony Anderson MD [address] [facility],[address], [place], [address], [facility] 08/18/2022 16:45:36 Imaging Results Imaging Date Name Status LastModified by Organiz ation Details LastModified Time 08/18/2022 bladder scan (PROC) completed BARCODE Information not available 08/19/2022 09:44:28 Procedure Notes None recorded. Medical Equipment None Reported. Allergies No known drug allergies Medications Name Sig Start Date Stop Date Status Note LastModified by Organization Details LastModified Time amoxicillin 500 mg capsule TAKE ONE CAPSULE BY MOUTH THREE TIMES A DAY UNTIL GONE 08/18 completed Not Available Not Available Not Available levothyroxi ne 175 mcg tablet TAKE ONE TABLET BY MOUTH EVERY DAY BEFORE BREAKFAST active Not Available Not Available No t Available levothyroxi ne 137 mcg tablet TAKE ONE TABLET BY MOUTH EVERY DAY BEFORE BREAKFAST 09/02 completed Not Available Not Available Not Available triamcinolo ne acetonide 0.5 % topical cream APPLY TO AFFECTED AREA(S) TWO TIMES A DAY active Not Available Not Available No t Available metoprolol succinate ER 50 mg tablet,exte nded release 24 hr TAKE ONE AND ONE-HALF TABLETS BY MOUTH EVERY DAY 09/02 completed Not Available Not Available Not Available tolterodine ER 4 mg capsule,ext ended release 24 hr TAKE ONE CAPSULE BY MOUTH EVERY DAY active Not Available Not Available No t Available hydrocodone 5 mg-acetamin ophen 325 mg tablet TAKE ONE TABLET BY MOUTH EVERY 4 TO 6 HOURS NEEDED FOR PAIN 09/02 completed Not Available Not Available Not Available metoprolol succinate ER 100 mg tablet,exte nded release 24 hr TAKE ONE TABLET BY MOUTH EVERY DAY active Not Available Not Available No t Available sildenafil 100 mg tablet TAKE 0.5-1 TABLETS BY MOUTH ONCE DAILY IF NEEDED FOR ERECTILE DYSFUNCTI ON TAKE 30MIN TO 4 HOURS BEFORE SEXUAL ACTIVITY MAX 100MG/24 HOURS active Not Available Not Available No t Available tamsulosin 0.4 mg capsule TAKE ONE CAPSULE BY MOUTH EVERY DAY active Not Available Not Available No t Available cephalexin 500 mg capsule TAKE ONE CAPSULE BY MOUTH THREE TIMES A DAY FOR 10 DAYS 09/02 completed Not Available Not Available Not Available pantoprazol e 40 mg tablet,heron yed release TAKE ONE TABLET BY MOUTH EVERY DAY active Not Available Not Available No t Available erythromyci n 5 mg/gram (0.5 %) eye ointment APPLY ONE STRIP TO RIGHT EYE SIX TIMES DAILY 08/18 completed Not Available Not Available Not Available levothyroxi ne 125 mcg tablet TAKE ONE TABLET BY MOUTH EVERY MORNING BEFORE BREAKFAST 08/18 completed Not Available Not Available Not Available levothyroxi ne 150 mcg tablet TAKE ONE TABLET BY MOUTH EVERY DAY BEFORE BREAKFAST 09/02 completed Not Available Not Available Not Available lisinopril 5 mg tablet TAKE ONE TABLET BY MOUTH EVERY DAY active Not Available Not Available No t Available probenecid 500 mg tablet TAKE ONE TABLET BY MOUTH TWICE A DAY active Not Available Not Available No t Available nitrofurant oin monohydrate /macrocryst als 100 mg capsule TAKE 1 CAPSULE BY MOUTH TWO TIMES DAILY FOR 5 DAYS. 09/02 completed Not Available Not Available Not Available eszopiclone 1 mg tablet TAKE ONE TABLET BY MOUTH AT BEDTIME 08/18 completed Not Available Not Available Not Available Xarelto 20 mg tablet TAKE ONE TABLET BY MOUTH EVERY DAY active Not Available Not Available No t Available Vitals Date Recorded Body height Body mass index (BMI) Body weight Provider Name and Address Organization Details Last Updated DateTime 08/18/2022 182.88 cm 29.8 kg/m2 05098.32 g Tony Anderson MD [address] [place] [address], [address] 08/18/2022 16:43:54 Date Recorded Body height Body mass index (BMI) Body weight Provider Name and Address Organization Details Last Updated DateTime 09/02/2023 182.88 cm 29.8 kg/m2 79701.32 g Tony Anderson MD [address] [place] [address], [address] 09/02/2023 15:48:01 Social History Question Answer Notes LastModified by Organizat ion Details LastModified Time Tobacco Smoking Status Never Smoker Tony Anderson MD [address] [place] [address],[address], [address], [facility] 08/18/2022 16:45:24 What Is Your Level Of Alcohol Consumption? Moderate Information not available 08/18/2022 What Is Your Level Of Caffeine Consumption? Moderate Information not available 08/18/2022 What Was The Date Of Your Most Recent Tobacco Screening? 09/02/2023 Information not available 09/02/2023 Do You Use Any Illicit Or Recreational Drugs? No Information not available 08/18/2022 Do You Or Have You Ever Used Any Other Forms Of Tobacco Or Nicotine? No Information not available 08/18/2022 Sex: Unknown Functional Status None recorded. Mental Status None recorded. Family History Relationship Description Onset Age of this Age Resolved Age Notes LastModified by Organization Details LastModified Time Father No current problems or disability Not available 08/18 16:45:04 Mother No current problems or disability Not available 08/18 16:45:04 Medical History Condition Response GERD/Acid Reflux Y Heart Disease Y High Blood Pressure Y Immunizations Vaccine Type Date Status Provider Name and Address Organization Details Recorded Time zoster recombinant 10/13/2017 completed Tony olivares MD [address] [place] [address],[address], [address], [facility] 09/02/2023 15:48:08 zoster recombinant 03/29/2018 completed Tony olivares MD [address] [place] [address],[address], [address], [facility] 09/02/2023 15:48:08 Influenza, adjuvanted, quadrivalent, PF 06/16/2022 completed Tony Anderson MD [address] [place] [address],[address] [place] [address], [address], [facility] 09/02/2023 15:48:08 COVID-19, mRNA, LNP-S, PF, 30 mcg/0.3 mL dose 07/15/2021 lynda Anderson MD [address] [place] [address],[address], [place], [address], [facility] 09/02/2023 15:48:08 COVID-19, mRNA, LNP-S, PF, 30 mcg/0.3 mL dose 10/03/2020 completed Tony Anderson MD [address] [place] [address],[address], [place], [address], [facility] 09/02/2023 15:48:08 COVID-19, mRNA, LNP-S, PF, 30 mcg/0.3 mL dose 11/22/2020 completed Tony Anderson MD [address] [place] [address],[address], [place], [address], [facility] 09/02/2023 15:48:08 Pneumococcal conjugate PCV20, polysaccharide [id number] conjugate, adjuvant, PF 06/16/2022 completed Tony Anderson MD [address] [place] [address],[address], [place], [address], [facility] 09/02/2023 15:48:08 Tdap 02/23/2012 completed Tony Anderson MD [address] [place] [address],[address], [place], [address], [facility] 09/02/2023 15:48:08 Influenza, split virus, quadrivalent, PF 07/15/2021 completed Tony Anderson MD [address] [place] [address],[address], [place], [address], [facility] 09/02/2023 15:48:08 Influenza, split virus, quadrivalent, PF 07/17/2017 completed Tony Anderson MD [address] [place] [address],[address], [place], [address], [facility] 09/02/2023 15:48:08 Influenza, split virus, quadrivalent, PF 03/15/2014 completed Tony Anderson MD [address] [place] [address],[address], [place], [address], [facility] 09/02/2023 15:48:08 Influenza, split virus, quadrivalent, PF 03/30/2019 completed Tony Anderson MD [address] [place] [address],[address], [place], [address], [facility] 09/02/2023 15:48:08 Influenza, split virus, quadrivalent, PF 04/05/2018 completed Tony Anderson MD [address] [place] [address],[address], [place], [address], [facility] 09/02/2023 15:48:08 Influenza, split virus, quadrivalent, PF 04/06/2020 completed Tony Anderson MD [address] [facility],[address] [place] [address], [address], [facility] 09/02/2023 15:48:08 Influenza, split virus, quadrivalent, PF 04/30/2016 completed Tony Anderson MD [address] [place] [address],[address], [address], [facility] 09/02/2023 15:48:08 pneumococcal polysaccharide PPV23 03/12/2012 completed Tony Anderson MD [address] [place] [address],[address], [address], [facility] 08/18/2022 16:44:05 Past Encounters Encounter ID Performer Location Encounter Start Date Encounter Closed Date Diagnosis/Indication Diagnosis SNOMED-CT Code Diagnosis ICD10 Code [id number] Tony Anderson MD [facility] [address] [place] [address] 08/18/2022 16:28:48 08/22/2022 13:45:34 Lower urinary tract symptoms due to benign prostatic hypertrophy 5976028084 9101 N40.1 Increased frequency of urination 994133538 R35.0 Prostate s pecific antigen above reference range 529580618 R97.20 [id number] Tony Anderson MD [facility] [address] [place] [address] 09/02/2023 15:21:16 09/03/2023 08:33:54 Lower urinary tract symptoms due to benign prostatic hypertrophy 7756853209 9101 N40.1 Increased frequency of urination 441706814 R35.0 Prostate s pecific antigen above reference range 670469908 R97.20 Health Concerns Section Related Observation LastModified by Organization Detai ls LastModified Time None Recorded Concern Status LastModified by Organization Details LastModified Time None Recorded Advance Directives Directive None Recorded Payers Encounter Date Sequence Insurance Name Policy Number Policy Crenshaw Covered Member ID Crenshaw Member ID Guarantor Name 08/18/2022 2 [id number] Ahsan Horowitz [id number] Ahsan Horowitz 09/02/2023 1 [place] [employer] [employer] [place] MEDICARE COST [id number] Ahsan Horowitz [id number] Ahsanrichardson Larsonshirin Notes Date Note Type Note Provider Name and Address Organization Details Recorded Time 08/18/2022 text/html HPI Notes: 67 yo male with H/O bladder irritation. He has to void 5 minutes after initial urination - occasional leakage (small amount). He tried Alfuzosin (no improvement). + Family H/O prostate cancer (father). He tried Oxybutynin ER 5 mg daily and Myrbetriq 25 mg daily. He is on Tolterodine LA 4 mg daily and Flomax 0.4 mg daily. 03/04/21 - He presents for follow-up on urination. He voids every 2-3 hours during the day and 2-3x/night. He denies hesitancy, weak stream, urgency, or dysuria. No dry mouth or constipation. 08/18/22 - He presents for follow-up on urination. He voids every 1-3 hours during the day and 2-3x/night. He denies hesitancy, urgency, or dysuria. - PSA - 10.6 - PVR - 0 mL PSA - 0.24 (08/02/08) - 0.27 (07/29/10) - 0.28 (09/02/13) - 0.51 (06/25/15) - 0.78 (09/24/18) - 1.55 (04/23/20) - 0.97 (07/10/20) - 1.44 (01/15/21) - 1.22 (08/26/21) - 10.6 (08/18/22) Tony Anderson MD [address] [place] [address],[address], [place], [address], [facility] 08/18/2022 18:03:46 09/02/2023 text/html HPI Notes: 68 yo male with H/O bladder irritation. He has to void 5 minutes after initial urination - occasional leakage (small amount). He tried Alfuzosin (no improvement). + Family H/O prostate cancer (father). He tried Oxybutynin ER 5 mg daily and Myrbetriq 25 mg daily. He is on Tolterodine LA 4 mg daily and Flomax 0.4 mg daily. 03/04/21 - He presents for follow-up on urination. He voids every 2-3 hours during the day and 2-3x/night. He denies hesitancy, weak stream, urgency, or dysuria. No dry mouth or constipation. 08/18/22 - He presents for follow-up on urination. He voids every 1-3 hours during the day and 2-3x/night. He denies hesitancy, urgency, or dysuria. 09/02/23 - He presents for follow-up on urination and Elevated PSA. He states his urinary symptoms returned to normal after treating his UTI. He voids every 3 hours during the day and 1-2x/night. - PSA - 1.5 ng/mL - PVR - 0mL PSA - 0.24 (08/02/08) - 0.27 (07/29/10) - 0.28 (09/02/13) - 0.51 (06/25/15) - 0.78 (09/24/18) - 1.55 (04/23/20) - 0.97 (07/10/20) - 1.44 (01/15/21) - 1.22 (08/26/21) - 10.6 (08/18/22) - 2.0 (09/22/22) - 1.5 (09/02/23) Tony Anderson MD [address] [place] [address],[address], [place], [address], [facility] 09/02/2023 22:26:53
--- NOTE | 2024-04-06 18:50 | CRLHL7_ITS ---
For Patients: As a result of the Century Cures Act, medical imaging exams and procedure reports are released immediately into your electronic medical record. You may view this report before your referring provider. If you have questions, please contact your health care provider. Indication: Pain of right lower extremity. Technique: Right tibia and fibula 2 views. Comparison: None. Findings: Bones: Alignment is normal. No fractures or suspicious bone lesions. Joint spaces: Knee joint chondrocalcinosis. Soft tissues: Diffuse soft tissue swelling. Vascular calcifications. Impression: No acute fracture or dislocation. Diffuse soft tissue swelling. Dictated by Matias Rosales MD @ 04/06/2024 7:57:11 PM (Electronically Signed)
[2024-04-06 19:17] LABS: Appearance Urine Clear (Clear); Bilirubin Urine Negative (Negative); Blood Urine Negative (Negative); Color Urine Yellow (Yellow); Glucose Urine Negative (Negative); Ketones Urine Negative (Negative); Leukocyte Esterase Urine Negative (Negative); Nitrite Urine Negative (Negative); Protein Urine Negative (Negative); Specific Gravity Urine 1.025 (1.000-1.030); Urobilinogen Urine 0.2 (0.2-1.0)
[2024-04-06 19:25] LABS: Chloride* 105 mmol/L (96-114)
[2024-04-06 19:26] LABS: Potassium* 4.2 mmol/L (3.6-5.1); Sodium* 138 mmol/L (135-149)
[2024-04-06 19:28] LABS: Anion Gap 10 mEq/L (7-15); Carbon Dioxide* 23 mmol/L (20-32); Creatinine* 1.2 mg/dL (0.5-1.5); Est. Creatinine Clearance* 65.56; Estimated Glomerular Filt Rate 66 ml/min
[2024-04-06 19:28] LABS: RBC Urine 0-2 (0-2); WBC Urine 0-2 (0-5)
[2024-04-06 19:29] LABS: Blood Urea Nitrogen* 34 mg/dL (7-30); Calcium* 9.4 mg/dL (8.4-10.6); Creatine Kinase* 145 U/L (54-186); Glucose* 84 mg/dL (60-115)
[2024-04-06 20:01] VITALS: BP 125/78; PULSE 85; RESP 18; TEMP 37; O2SAT 97
== END 2024-04-06 20:02 | disposition home or self-care (01) ==
PROVIDERS: Emergency Provider Family Medicine; PCP Family Medicine
DX: R60.0 Localized edema (principal); S86.911A Strain of unspecified muscle(s) and tendon(s) at lower leg level, right leg, initial encounter
CPT/HCPCS: 36415; 73590; 80048; 81001; 82550; 93971; 99284